=== PATIENT | male | born 1960 | race Caucasian/White ===

== ENCOUNTER → 2025-02-06 09:47 | Outpatient (REF) | payer MEDICARE, OTHER, SELFPAY | LOC: HWRAD 09:47 | PROVIDERS: ATTENDING PHYSICIAN Family Medicine | DX: M54.12 Radiculopathy, cervical region (principal) | CPT/HCPCS: 72050 ==

== ENCOUNTER 2025-03-25 15:53 | Outpatient (RCR) | payer MEDICARE, OTHER, SELFPAY | END 2025-03-25 23:59 | disposition home or self-care (01) | LOC: RPT 15:53 | PROVIDERS: ATTENDING PHYSICIAN Family Medicine | DX: M54.12 Radiculopathy, cervical region (principal); Z73.6 Limitation of activities due to disability; M25.512 Pain in left shoulder | CPT/HCPCS: 97110; 97162; 97535 ==

== ENCOUNTER 2025-04-15 12:50 | Outpatient (RCR) | payer MEDICARE, OTHER, SELFPAY | END 2025-04-15 23:59 | disposition home or self-care (01) | LOC: RPT 12:50 | PROVIDERS: ATTENDING PHYSICIAN Family Medicine | DX: M54.12 Radiculopathy, cervical region (principal); Z73.6 Limitation of activities due to disability; M25.512 Pain in left shoulder | CPT/HCPCS: 97110; 97535 ==

== ENCOUNTER → 2025-08-09 06:20 | Outpatient (REF) | payer MEDICARE, OTHER, SELFPAY | LOC: RAD 06:20 | PROVIDERS: ATTENDING PHYSICIAN Family Medicine | DX: I65.22 Occlusion and stenosis of left carotid artery (principal) | CPT/HCPCS: 93880 ==